=== PATIENT | female | born 1940 | race Caucasian/White ===

== ENCOUNTER → 2016-07-30 | Outpatient (CLI) | payer MEDICARE, BC ==
[~2016-07-30] VITALS: Ht 165.1 cm; Wt 66.4 kg
[~2016-07-30] MED LIST: ANUSOL HC CREAM30 GM; LOW DOSE ASPIRI81 M1 PO
[2016-07-30 09:47] VITALS: BP 162/94
== END ==
LOC: AMSURD 09:42
DX: R55 Syncope and collapse (principal); R06.02 Shortness of breath

== ENCOUNTER → 2016-08-04 | Outpatient (CLI) | payer MEDICARE, BC ==
[2016-07-30 09:47] VITALS: BP 162/94
== END | disposition home or self-care (01) ==
LOC: RAD 12:00 → VAS 16:23
DX: R55 Syncope and collapse (principal); R06.02 Shortness of breath; I34.0 Nonrheumatic mitral (valve) insufficiency

== ENCOUNTER → 2016-08-11 | Outpatient (CLI) | payer MEDICARE, BC ==
[2016-07-30 09:47] VITALS: BP 162/94
== END ==
LOC: RAD 15:30
DX: R55 Syncope and collapse (principal)

== ENCOUNTER → 2016-08-20 | Outpatient (CLI) | payer MEDICARE, BC ==
[2016-07-30 09:47] VITALS: BP 162/94
== END ==
LOC: CARDREHAB 09:24
DX: R55 Syncope and collapse (principal); R06.02 Shortness of breath; E78.5 Hyperlipidemia, unspecified; Z82.49 Family history of ischemic heart disease and other diseases of the circulatory system; R06.00 Dyspnea, unspecified
CPT/HCPCS: A9500

== ENCOUNTER → 2017-01-19 | Outpatient (CLI) | payer MEDICARE, BC ==
[2016-07-30 09:47] VITALS: BP 162/94
== END ==
LOC: RAD 15:35
DX: R55 Syncope and collapse (principal); R82.90 Unspecified abnormal findings in urine; R53.1 Weakness

== ENCOUNTER → 2017-01-21 | Outpatient (CLI) | payer MEDICARE, BC ==
[2016-07-30 09:47] VITALS: BP 162/94
[2017-01-21 15:11] LABS: URINE APPEARANCE CLEAR; URINE BILIRUBIN NEGATIVE (NEGATIVE); URINE BLOOD NEGATIVE (NEGATIVE); URINE COLOR YELLOW; URINE GLUCOSE NEGATIVE (NEGATIVE); URINE KETONE NEGATIVE (NEGATIVE); URINE LEUKOCYTE ESTERASE NEGATIVE (NEGATIVE); URINE NITRATE NEGATIVE (NEGATIVE); URINE PROTEIN(semi-quant) TRACE mg/dL (NEGATIVE); URINE UROBILINOGEN NORMAL (NORMAL)
[2017-01-21 15:19] LABS: BASO # 0.1 (0.02-0.10); EOS # 0.1 (0.04-0.40); EOS % 1.2 % (1.0-5.0); HEMATOCRIT 44.2 % (37.0-47.0); HEMOGLOBIN 15.3 g/dL (12.5-16.0); MEAN CELL VOLUME 90 fl (78-100); MEAN CORPUSCULAR HEMOGLOBIN 31 pg (27-31); MEAN CORPUSCULAR HGB CONC 35 g/dL (33-37); MEAN PLATELET VOLUME 10.4 fl (7.4-10.4); MONO # 0.6 (0.20-0.80); NEU # 3.2 (1.40-6.50); PLATELET COUNT 194 K/mm3 (130-400); RED BLOOD COUNT 4.91 M/mm3 (4.10-5.30); RED CELL DISTRIBUTION WIDTH 12.4 % (11.5-14.5); WHITE BLOOD COUNT 4.9 K/mm3 (4.8-10.8)
[2017-01-21 15:31] LABS: BUN/CREATININE RATIO 21.9 (6.0-26.0); CALCIUM 9.4 mg/dL (8.4-10.2); TOTAL BILIRUBIN 0.8 mg/dL (0.2-1.3); TOTAL PROTEIN 7.1 g/dL (6.3-8.2)
== END ==
LOC: LAB 14:33
PROVIDERS: Nurse Practitioner Family
DX: R55 Syncope and collapse (principal); R82.90 Unspecified abnormal findings in urine; Z88.1 Allergy status to other antibiotic agents

== ENCOUNTER → 2017-06-10 | Outpatient (CLI) | payer MEDICARE, BC ==
[2016-07-30 09:47] VITALS: BP 162/94
== END ==
LOC: RAD 15:20
DX: M25.522 Pain in left elbow (principal); Z88.1 Allergy status to other antibiotic agents

== ENCOUNTER → 2017-10-31 | Outpatient (CLI) | payer MEDICARE, BC ==
[2016-07-30 09:47] VITALS: BP 162/94
[2017-10-31 08:01] LABS: HEMATOCRIT 46.6 % (37.0-47.0); MEAN CELL VOLUME 91 fl (78-100); MEAN CORPUSCULAR HEMOGLOBIN 31 pg (27-31); MEAN CORPUSCULAR HGB CONC 34 g/dL (33-37); MEAN PLATELET VOLUME 10.2 fl (7.4-10.4); PLATELET COUNT 196 K/mm3 (130-400); RED BLOOD COUNT 5.13 M/mm3 (4.10-5.30); RED CELL DISTRIBUTION WIDTH 12.8 % (11.5-14.5); WHITE BLOOD COUNT 3.2 K/mm3 (4.8-10.8)
[2017-10-31 08:22] LABS: ALBUMIN 4.2 g/dL (3.5-5.0); CALCIUM 9.5 mg/dL (8.4-10.2); POTASSIUM 4.1 mmol/L (3.6-5.0); TOTAL BILIRUBIN 1.4 mg/dL (0.2-1.3); TOTAL PROTEIN 7.2 g/dL (6.3-8.2)
[2017-10-31 08:37] LABS: LYMPHOCYTE 19 % (20-51); MONOCYTE 16 % (3-10); NEUTROPHILS 56 % (42-75)
[2017-10-31 08:49] LABS: URINE APPEARANCE CLEAR; URINE BILIRUBIN NEGATIVE (NEGATIVE); URINE BLOOD 50 ery/uL (NEGATIVE); URINE COLOR YELLOW; URINE GLUCOSE NEGATIVE (NEGATIVE); URINE KETONE NEGATIVE (NEGATIVE); URINE LEUKOCYTE ESTERASE TRACE (NEGATIVE); URINE NITRATE NEGATIVE (NEGATIVE); URINE PROTEIN(semi-quant) NEGATIVE (NEGATIVE); URINE UROBILINOGEN NORMAL (NORMAL)
[2017-10-31 08:50] LABS: URINE MUCUS PRESENT (NOT PRESENT)
[2017-10-31 09:16] LABS: ERYTHROCYTE SEDIMENTATION RATE 3 mm/hr (0-30)
== END ==
LOC: LAB 07:42 → EDSTATUS 07:45
PROVIDERS: Internal Medicine
DX: Z12.11 Encounter for screening for malignant neoplasm of colon (principal); M81.0 Age-related osteoporosis without current pathological fracture; E78.5 Hyperlipidemia, unspecified

== ENCOUNTER → 2017-12-29 | Outpatient (CLI) | payer MEDICARE, BC ==
[2016-07-30 09:47] VITALS: BP 162/94
== END ==
LOC: RAD 09:47 → MAMMO 10:00
DX: Z13.820 Encounter for screening for osteoporosis (principal); M81.0 Age-related osteoporosis without current pathological fracture; M85.851 Other specified disorders of bone density and structure, right thigh

== ENCOUNTER → 2019-03-08 | Outpatient (CLI) | payer MEDICARE, BC ==
[2016-07-30 09:47] VITALS: BP 162/94
== END ==
LOC: RAD 08:29
DX: M19.041 Primary osteoarthritis, right hand (principal); M71.341 Other bursal cyst, right hand

== ENCOUNTER → 2019-11-26 | Outpatient (CLI) | payer MEDICARE, BC ==
[2016-07-30 09:47] VITALS: BP 162/94
[2019-11-26 10:48] LABS: HEMATOCRIT 47.5 % (37.0-47.0); HEMOGLOBIN 15.6 g/dL (12.5-16.0); MEAN PLATELET VOLUME 10.2 fl (7.4-10.4); RED BLOOD COUNT 5.19 M/mm3 (4.10-5.30); RED CELL DISTRIBUTION WIDTH 12.8 % (11.5-14.5); WHITE BLOOD COUNT 4.2 K/mm3 (4.8-10.8)
[2019-11-27 13:50] LABS: TESTOSTERONE 45 ng/dL (13-36)
== END ==
LOC: LAB 10:03
DX: L64.9 Androgenic alopecia, unspecified (principal)

== ENCOUNTER 2020-03-22 19:32 | Inpatient (IN) | payer MEDICARE, BC ==
[~2020-03-22] VITALS: Ht 165.1 cm; Wt 62.5 kg
[2020-03-22 22:00] VITALS: BP 103/72
[2020-03-23 02:41] VITALS: BP 103/68; BP 111/69
[2020-03-23 06:18] VITALS: BP 107/64; BP 120/72
[2020-03-23] MEDS ORDERED: CARDIZEM CD 18180 MG PO (10:21)
[2020-03-23] MEDS ORDERED: ENOXAPARIN30 MG/0.3 SQ (10:21)
[2020-03-23 10:30] VITALS: BP 101/66
== END 2020-03-23 11:22 | disposition home or self-care (01) | DRG 310 ==
LOC: MED/SURG 19:32
PROVIDERS: ADMIT Family Medicine
DX: I48.91 Unspecified atrial fibrillation (principal)
CPT/HCPCS: J1650

== ENCOUNTER → 2020-03-24 | Outpatient (CLI) | payer MEDICARE, BC ==
[2020-03-23 10:30] VITALS: BP 101/66
[~2020-03-24] MED LIST changes: +CARDIZEM CD 18180 MG PO; +ENOXAPARIN30 MG/0.3 SQ
== END ==
LOC: VAS 16:11
DX: I48.91 Unspecified atrial fibrillation (principal); I70.0 Atherosclerosis of aorta

== ENCOUNTER → 2020-04-28 | Outpatient (CLI) | payer MEDICARE, BC | LOC: AMSURD 15:20 | DX: I48.0 Paroxysmal atrial fibrillation (principal) ==

== ENCOUNTER → 2020-10-23 | Outpatient (CLI) | payer MEDICARE, BC ==
[2020-10-23 15:02] LABS: POTASSIUM 4.1 mmol/L (3.5-5.1)
[2020-10-23 15:03] LABS: CALCIUM 9.9 mg/dL (8.3-10.5)
== END ==
LOC: LAB 14:24
PROVIDERS: Internal Medicine Cardiovascular Disease
DX: I48.0 Paroxysmal atrial fibrillation (principal)

== ENCOUNTER → 2020-12-19 | Outpatient (CLI) | payer MEDICARE, BC | LOC: RAD 14:23 | DX: M19.011 Primary osteoarthritis, right shoulder (principal) ==

== ENCOUNTER → 2021-01-06 | Outpatient (CLI) | payer MEDICARE, BC | LOC: RAD 12-25 20:30 | DX: M19.011 Primary osteoarthritis, right shoulder (principal); M67.813 Other specified disorders of tendon, right shoulder; M75.51 Bursitis of right shoulder ==

== ENCOUNTER 2021-01-21 09:52 | Outpatient (RCR) | payer MEDICARE, BC | END 2021-02-13 | disposition home or self-care (01) | LOC: PT 09:52 | DX: M25.511 Pain in right shoulder (principal) ==

== ENCOUNTER 2021-02-20 13:00 | Outpatient (RCR) | payer MEDICARE, BC | END 2021-03-16 | disposition home or self-care (01) | LOC: PT | DX: M25.511 Pain in right shoulder (principal) ==

== ENCOUNTER 2021-03-20 14:00 | Outpatient (RCR) | payer MEDICARE, BC | END 2021-03-20 17:00 | disposition home or self-care (01) | LOC: PT 14:00 | DX: M25.511 Pain in right shoulder (principal) ==

== ENCOUNTER 2021-05-27 09:54 | Outpatient (RCR) | payer MEDICARE, BC | END 2021-06-13 | disposition home or self-care (01) | LOC: PT | DX: M25.511 Pain in right shoulder (principal) ==

== ENCOUNTER → 2021-06-04 | Outpatient (CLI) | payer MEDICARE, BC ==
[2021-06-04 09:16] LABS: BASO # 0.05 K/mm3 (0.02-0.10); EOS # 0.07 K/mm3 (0.04-0.40); EOS % 1.6 % (1.0-5.0); HEMATOCRIT 44.2 % (37.0-47.0); LYMPH# 0.66 K/mm3 (1.50-4.00); MEAN CELL VOLUME 91 fl (78-100); MEAN CORPUSCULAR HEMOGLOBIN 31 pg (27-31); MEAN CORPUSCULAR HGB CONC 34 g/dL (33-37); MEAN PLATELET VOLUME 9.5 fl (7.4-10.4); MONO # 0.56 K/mm3 (0.20-0.80); NEU # 2.99 K/mm3 (1.40-6.50); PLATELET COUNT 226 K/mm3 (130-400); RED BLOOD COUNT 4.87 M/mm3 (4.10-5.30); RED CELL DISTRIBUTION WIDTH 12.8 % (11.5-14.5); WHITE BLOOD COUNT 4.3 K/mm3 (4.8-10.8)
[2021-06-04 09:27] LABS: POTASSIUM 4.2 mmol/L (3.5-5.1)
[2021-06-04 09:28] LABS: ALBUMIN 3.9 g/dL (3.4-4.8)
[2021-06-04 09:29] LABS: CALCIUM 9.8 mg/dL (8.3-10.5)
[2021-06-04 09:30] LABS: TOTAL PROTEIN 6.8 g/dL (6.2-8.1)
[2021-06-04 09:32] LABS: TOTAL BILIRUBIN 0.7 mg/dL (0.2-1.2)
[2021-06-04 11:20] LABS: ERYTHROCYTE SEDIMENTATION RATE 8 mm/hr (0-30)
== END ==
LOC: LAB 08:48
PROVIDERS: Internal Medicine
DX: I48.0 Paroxysmal atrial fibrillation (principal); K90.9 Intestinal malabsorption, unspecified; E78.5 Hyperlipidemia, unspecified; M81.0 Age-related osteoporosis without current pathological fracture; E55.9 Vitamin D deficiency, unspecified

== ENCOUNTER → 2021-06-10 | Outpatient (CLI) | payer MEDICARE, BC | LOC: MAMMO 12:54 | DX: Z13.820 Encounter for screening for osteoporosis (principal); M81.0 Age-related osteoporosis without current pathological fracture; Z78.0 Asymptomatic menopausal state ==

== ENCOUNTER → 2022-10-27 | Outpatient (CLI) | payer MEDICARE, BC | LOC: LAB 13:43 | DX: U07.1 COVID-19 (principal) ==

== ENCOUNTER → 2023-04-20 | Outpatient (CLI) | payer MEDICARE, BC ==
[~2023-04-20] MED LIST changes: +Denosumab 60 MG/ML SYRINGE SQ ONE; +Denosumab 60 MG/ML SYRINGE SQ SCH; +ELIQUIS2.5 MG PO; +VITAMIN D31250 MC2 PO
[2023-04-20 13:58] VITALS: BP 127/58
== END ==
LOC: AMSURD 04-13 14:05
DX: M81.0 Age-related osteoporosis without current pathological fracture (principal)
CPT/HCPCS: J0897

== ENCOUNTER → 2023-09-30 | Outpatient (CLI) | payer MEDICARE, BC ==
[~2023-09-30] MED LIST changes: +CEPHALEXIN500 M2 PO; -Denosumab 60 MG/ML SYRINGE SQ ONE; -Denosumab 60 MG/ML SYRINGE SQ SCH
[2023-09-30 09:09] LABS: BASO # 0.03 K/mm3 (0.02-0.10); EOS # 0.09 K/mm3 (0.04-0.40); EOS % 2.2 % (1.0-5.0); HEMOGLOBIN 15.9 g/dL (12.5-16.0); MEAN CELL VOLUME 91 fl (78-100); MEAN CORPUSCULAR HEMOGLOBIN 31 pg (27-31); MEAN CORPUSCULAR HGB CONC 34 g/dL (33-37); MEAN PLATELET VOLUME 10.2 fl (7.4-10.4); MONO # 0.53 K/mm3 (0.20-0.80); NEU # 2.74 K/mm3 (1.40-6.50); PLATELET COUNT 195 K/mm3 (130-400); RED BLOOD COUNT 5.19 M/mm3 (4.10-5.30); RED CELL DISTRIBUTION WIDTH 12.3 % (11.5-14.5); WHITE BLOOD COUNT 4.1 K/mm3 (4.8-10.8)
[2023-09-30 09:15] LABS: ALBUMIN 4.2 g/dL (3.4-4.8)
[2023-09-30 09:17] LABS: CALCIUM 9.8 mg/dL (8.3-10.5)
[2023-09-30 09:18] LABS: TOTAL PROTEIN 6.9 g/dL (6.2-8.1)
[2023-09-30 09:20] LABS: TOTAL BILIRUBIN 0.9 mg/dL (0.2-1.2)
[2023-09-30 09:25] LABS: MAGNESIUM 2.04 mg/dL (1.60-2.60)
== END ==
LOC: LAB 08:44
PROVIDERS: Internal Medicine
DX: Z12.11 Encounter for screening for malignant neoplasm of colon (principal); I48.0 Paroxysmal atrial fibrillation; E78.5 Hyperlipidemia, unspecified; K90.9 Intestinal malabsorption, unspecified

== ENCOUNTER 2023-10-02 13:17 | Emergency (ER) | payer MEDICARE, BC ==
[~2023-10-02] VITALS: Ht 162.6 cm; Wt 59.1 kg
[~2023-10-02 13:17] MED LIST changes: -CEPHALEXIN500 M2 PO
[2023-10-02 13:40] VITALS: BP 112/49
[2023-10-02] MEDS ORDERED: CEPHALEXIN500 M2 PO (15:13)
[2023-10-02] MEDS ORDERED: Cephalexin 500 MG CAP PO ONE (15:15)
[2023-10-04 14:46] LABS: GRAM STAIN AMS
[2023-11-10] MEDS ORDERED: CALCIUM/VITAMIN1 TA3 PO (10:28)
== END 2023-10-02 15:35 | disposition home or self-care (01) ==
LOC: ED 13:17
PROVIDERS: Physician Assistant
DX: M70.22 Olecranon bursitis, left elbow (principal)

== ENCOUNTER 2023-10-03 17:33 | Emergency (ER) | payer MEDICARE, BC ==
[~2023-10-03] VITALS: Ht 165.1 cm; Wt 59.3 kg
[~2023-10-03 17:33] MED LIST changes: +CEPHALEXIN500 M2 PO
[2023-10-03 17:35] VITALS: BP 164/80
== END 2023-10-03 18:44 | disposition home or self-care (01) ==
LOC: ED 17:33
DX: M70.22 Olecranon bursitis, left elbow (principal)

== ENCOUNTER → 2023-11-10 | Outpatient (CLI) | payer MEDICARE, BC ==
[~2023-11-10] VITALS: Ht 165.1 cm; Wt 59.3 kg
[~2023-11-10] MED LIST changes: +CALCIUM/VITAMIN1 TA3 PO; +Denosumab 60 MG/ML SYRINGE SQ SCH
[2023-11-10 10:15] VITALS: BP 131/64
== END ==
LOC: AMSURD 10:02
DX: M81.0 Age-related osteoporosis without current pathological fracture (principal)
CPT/HCPCS: J0897

== ENCOUNTER → 2024-05-17 | Outpatient (CLI) | payer MEDICARE, BC ==
[~2024-05-17] VITALS: Ht 165.1 cm; Wt 59.3 kg
[~2024-05-17] MED LIST changes: +Denosumab 60 MG/ML SYRINGE SQ ONE; -Denosumab 60 MG/ML SYRINGE SQ SCH
[2024-05-17 09:07] VITALS: BP 104/70
== END ==
LOC: AMSURD 08:43
DX: M81.0 Age-related osteoporosis without current pathological fracture (principal)
CPT/HCPCS: J0897